=== PATIENT | female | born 1995 | race African-American/Black ===

== ENCOUNTER 2020-02-07 04:00 | Inpatient (IN) ==
[2020-02-07] MEDS ORDERED: Ondansetron 4 MG/2 ML VIAL IVP PRN ×2 (04:03→06:41)
[2020-02-07] MEDS ORDERED: Metoclopramide 10 MG/2 ML VIAL IVP PRN (04:03)
[2020-02-07] MEDS ORDERED: Naloxone 0.4 MG/ML INJ IVP PRN ×2 (04:03→06:41)
[2020-02-07] MEDS ORDERED: Lidocaine 1% 20 ML MDV INFILT PRN (04:03)
[2020-02-07] MEDS ORDERED: Famotidine 20 MG/2 ML VIAL IVP PRN (04:03)
[2020-02-07] MEDS ORDERED: Ringers Solution, Lactated 1,000 ML IVC SCH (04:15)
[2020-02-07 04:35] LABS: Basophils # 0.1 K/mcL (0.0-0.2); Basophils % 0.4 %; Eosinophils # 0.4 K/mcL (0.0-0.6); Eosinophils % 2.1 %; Hematocrit 36.9 % (35.3-44.9); Hemoglobin 12.9 g/dL (11.5-15.4); Immature Granulocytes % 0.5 % (0-4); Lymphocytes % 23.9 %; Mean Corpuscular Hemoglobin 31.2 pg (28.0-33.3); Mean Corpuscular Volume 89.1 fL (83.0-100.0); Mean Platelet Volume 8.9 fL (9.4-12.4); Monocytes # 1.2 K/mcL (0.0-1.3); Monocytes % 7.2 %; Neutrophils # 11.1 K/mcL (1.6-8.9); Platelet Count 449 K/mcL (140-400); Red Blood Count 4.14 M/mcL (3.82-4.97); Red Cell Distribution Width 12.4 % (11.5-14.5); Segmented Neutrophils % 65.9 %; White Blood Count 16.9 K/mcL (4.3-11.1)
[2020-02-07 04:40] LABS: Amphetamine Screen,Urine Negative ng/mL (Cutoff=1000); Barbiturate Screen,Urine Negative ng/mL (Cutoff=200); Benzodiazepines Screen,Urine Negative ng/mL (Cutoff=200); Cannabinoid Screen,Urine Negative ng/mL (Cutoff = 50); Cocaine Screen,Urine Negative ng/mL (Cutoff= 300); Opiate Screen,Urine Negative ng/mL (Cutoff=300); Phencyclidine Screen,Urine Negative ng/mL (Cutoff=25)
[2020-02-07] MEDS ORDERED: miSOPROStoL 25 MCG TABLET PO SCH (05:00)
[2020-02-07 06:40] LABS: Alanine Aminotransferase 11 Units/L (7-52); Aspartate Amino Transferase 10 Units/L (13-39); BUN/Creatinine Ratio 14 (6-26); Blood Urea Nitrogen 8 mg/dL (6-20); Lactate Dehydrogenase 157 Units/L (140-271); eGFR For African Americans > 60 (> 60); eGFR For Non-African Americans > 60 (> 60)
[2020-02-07 06:41] LABS: Creatinine,Urine 129 mg/dL
[2020-02-07] MEDS ORDERED: *HR* FentaNYL (PF) 100 MCG/2 ML VIAL EP ONE (06:41)
[2020-02-07] MEDS ORDERED: EPHEDrine 50 MG/ML VIAL IVP PRN (06:41)
[2020-02-07] MEDS ORDERED: Ropivacaine/PF 0.2% 20 ML VIAL EP ONE (06:41)
[2020-02-07] MEDS ORDERED: Epidural Premix (fent/bupiv) 110 ML EP SCH (06:45)
[2020-02-07] MEDS ORDERED: Oxytocin 20 units/ LR 1000 mL 20 UNIT/1,000 ML BAG IVC SCH (09:45)
[2020-02-07] MEDS ORDERED: *HR* FentaNYL (PF) 100 MCG/2 ML VIAL IVP PRN (11:26)
[2020-02-07] MEDS ORDERED: miSOPROStoL 25 MCG TABLET VG SCH (12:00)
[2020-02-07] MEDS ORDERED: *HR* FentaNYL (PF) 100 MCG/2 ML VIAL ONE (17:38)
[2020-02-07] MEDS ORDERED: Bupivacaine-MPF 0.25% 10 ML VIAL ONE (17:39)
[2020-02-07] MEDS ORDERED: *HR* Oxytocin 10 UNIT/ML VIAL IM ONE (23:55)
[2020-02-07] MEDS ORDERED: *HR* Morphine Sulfate/PF 10 MG/10 ML AMPUL ONE (23:55)
[2020-02-07] MEDS ORDERED: Lidocaine/EPI 1:200k 2% PF 20 ML VIAL ONE (23:56)
[2020-02-08] MEDS ORDERED: Ringers Solution, Lactated 1,000 ML ONE (00:58)
[2020-02-08] MEDS ORDERED: Ondansetron 4 MG/2 ML VIAL ONE (01:12)
[2020-02-08] MEDS ORDERED: *HR* Morphine Sulfate/PF 10 MG/10 ML AMPUL ONE (01:12)
[2020-02-08] MEDS ORDERED: Acetaminophen IV 1,000 MG/100 ML INFUS..BTL IVPB ONE (01:20)
[2020-02-08] MEDS ORDERED: *HR* Promethazine 25 MG/ML VIAL IVP PRN (01:20)
[2020-02-08] MEDS ORDERED: Ondansetron 4 MG/2 ML VIAL IVP ONE (01:20)
[2020-02-08] MEDS ORDERED: *HR* HYDROmorphone PF 0.5 MG/0.5 ML SYRINGE IVP PRN (01:20)
[2020-02-08] MEDS ORDERED: Ibuprofen 600 MG TABLET PO STA (03:51)
[2020-02-08] MEDS ORDERED: Ringers Solution, Lactated 1,000 ML IVC SCH (04:29)
[2020-02-08] MEDS ORDERED: Ondansetron 4 MG/2 ML VIAL IVP PRN (04:29)
[2020-02-08] MEDS ORDERED: Rho Immune Globulin 1,500 UNIT SYRINGE IM ONE (04:29)
[2020-02-08] MEDS ORDERED: Sennosides 8.6 MG TABLET PO PRN (04:29)
[2020-02-08] MEDS ORDERED: Metoclopramide 10 MG/2 ML VIAL IVP PRN (04:29)
[2020-02-08] MEDS: *HR* OxyCODONE/APAP 5/325 TABLET PO PRN ×3 (05:51→19:46)
[2020-02-08] MEDS: metroNIDAZOLE 500 MG TABLET PO SCH ×3 (07:50→19:59)
[2020-02-08] MEDS: cephALEXin 500 MG CAPSULE PO SCH ×3 (07:50→19:46)
[2020-02-08] MEDS: Prenatal Vit/FA 1 EACH TABLET PO SCH (07:50)
[2020-02-08] MEDS ORDERED: BUPRENORPHIN NALOXON SL SCH (09:00)
[2020-02-08] MEDS ORDERED: *HR* Buprenorphine HCl 8 MG TAB.SUBL SL SCH (09:30)
[2020-02-08] MEDS: Oxytocin 20 units/ LR 1000 mL 20 UNIT/1,000 ML BAG IVC SCH ×2 (10:53→16:50)
[2020-02-08] MEDS: Ibuprofen 600 MG TABLET PO PRN ×2 (11:05→17:05)
[2020-02-08] MEDS ORDERED: Ringers Solution, Lactated 1,000 ML IVC ONE (14:37)
[2020-02-08] MEDS: Simethicone 80 MG TAB.CHEW PO PRN (19:45)
[2020-02-09] MEDS: Ibuprofen 600 MG TABLET PO PRN ×2 (03:28→19:39)
[2020-02-09] MEDS: *HR* OxyCODONE/APAP 5/325 TABLET PO PRN ×3 (03:28→17:33)
[2020-02-09 06:06] LABS: Basophils % 0.2 %; Eosinophils # 0.2 K/mcL (0.0-0.6); Hematocrit 35.6 % (35.3-44.9); Hemoglobin 11.7 g/dL (11.5-15.4); Immature Granulocytes % 0.4 % (0-4); Lymphocytes # 3.1 K/mcL (0.6-4.6); Mean Corpuscular HGB Conc 32.9 g/dL (31.6-35.5); Mean Corpuscular Hemoglobin 29.6 pg (28.0-33.3); Mean Corpuscular Volume 90.1 fL (83.0-100.0); Mean Platelet Volume 8.8 fL (9.4-12.4); Monocytes % 6.8 %; Neutrophils # 10.5 K/mcL (1.6-8.9); Nucleated Red Blood Cells 0.2 /100 WBC (0); Platelet Count 410 K/mcL (140-400); Red Blood Count 3.95 M/mcL (3.82-4.97); Red Cell Distribution Width 12.7 % (11.5-14.5); Segmented Neutrophils % 70.6 %; White Blood Count 14.9 K/mcL (4.3-11.1)
[2020-02-09] MEDS: metroNIDAZOLE 500 MG TABLET PO SCH ×3 (08:32→19:35)
[2020-02-09] MEDS: Prenatal Vit/FA 1 EACH TABLET PO SCH (08:32)
[2020-02-09] MEDS: *HR* Buprenorphine HCl 8 MG TAB.SUBL SL SCH ×2 (09:05→19:36)
[2020-02-09] MEDS: cephALEXin 500 MG CAPSULE PO SCH ×3 (09:06→19:36)
[2020-02-09] MEDS: Simethicone 80 MG TAB.CHEW PO PRN (19:39)
[2020-02-10 07:58] VITALS: BP 129/64
[2020-02-10] MEDS: Prenatal Vit/FA 1 EACH TABLET PO SCH (08:47)
[2020-02-10] MEDS: *HR* Buprenorphine HCl 8 MG TAB.SUBL SL SCH (08:47)
== END 2020-02-10 09:34 | disposition home or self-care (01) | DRG 540 ==
LOC: 1NENULAB 04:01 → 1NENUOBS 02-08 04:38
PROVIDERS: ADMIT Obstetrics & Gynecology; ATTEND Obstetrics & Gynecology